=== PATIENT | female | born 1995 | race Native Hawaiian/Other Pacific Islander ===

== ENCOUNTER 2016-02-24 01:07 | Emergency (ER) | payer OTHER ==
[~2016-02-24] VITALS: Ht 152.4 cm; Wt 98.9 kg
[~2016-02-24 01:07] MED LIST: PRENATAL1 T10 PO
[2016-02-24 01:10] VITALS: TEMP 98.5
[2016-02-24 02:33] VITALS: BP 131/76
== END 2016-02-24 02:43 | disposition short-term general hospital (02) ==
LOC: ED 01:07
DX: R10.84 Generalized abdominal pain (principal); O26.92 Pregnancy related conditions, unspecified, second trimester; Z3A.27 27 weeks gestation of pregnancy
CPT/HCPCS: 81000; 99284

== ENCOUNTER 2016-05-16 13:11 | Emergency (ER) | payer OTHER ==
[~2016-05-16] VITALS: Ht 152.4 cm; Wt 104.3 kg
[2016-05-16 13:17] VITALS: BP 135/84; TEMP 99.2
[2016-05-16 13:45] LABS: PLATELET COUNT 250 K/uL (152-353)
[2016-05-16 13:49] LABS: POTASSIUM 3.9 mmol/L (3.6-5.2); SODIUM 136 mmol/L (136-145)
== END 2016-05-16 14:05 | disposition home or self-care (01) ==
LOC: ED 13:11
DX: R42 Dizziness and giddiness (principal)
CPT/HCPCS: 36415; 80053; 85027; 99283

== ENCOUNTER 2016-05-25 21:36 | Emergency (ER) | payer OTHER ==
[~2016-05-25] VITALS: Ht 152.4 cm; Wt 99.3 kg
[2016-05-25 22:31] LABS: PLATELET COUNT 235 K/uL (152-353)
[2016-05-25 22:38] LABS: POTASSIUM 3.3 mmol/L (3.6-5.2); SODIUM 138 mmol/L (136-145)
[2016-05-25 23:09] VITALS: BP 123/77; TEMP 99
== END 2016-05-25 23:15 | disposition home or self-care (01) ==
LOC: ED 21:36
DX: A08.39 Other viral enteritis (principal); R11.10 Vomiting, unspecified
CPT/HCPCS: 36415; 80053; 85027; 99282

== ENCOUNTER 2016-05-26 11:00 | Outpatient (CLI) | payer OTHER | END 2016-05-26 11:16 | disposition home or self-care (01) | LOC: AMB 11:00 | DX: O72.2 Delayed and secondary postpartum hemorrhage (principal) | CPT/HCPCS: A0425; A0427 ==

== ENCOUNTER 2016-05-27 22:39 | Emergency (ER) | payer OTHER ==
[~2016-05-27] VITALS: Ht 152.4 cm; Wt 98.4 kg
[2016-05-27 23:16] LABS: PLATELET COUNT 328 K/uL (152-353)
[2016-05-27 23:28] LABS: POTASSIUM 3.5 mmol/L (3.6-5.2); SODIUM 139 mmol/L (136-145)
[2016-05-27 23:37] LABS: PARTIAL THROMBOPLASTIN TIME 24.5 SECONDS (24.5-33.6)
[2016-05-28 09:43] VITALS: BP 134/68; TEMP 98.5
== END 2016-05-28 09:43 | disposition home or self-care (01) ==
LOC: ED 22:39
PROC: 30233N1 Transfusion of Nonautologous Red Blood Cells into Peripheral Vein, Percutaneous Approach (ICD-10-PCS; principal; 2016-05-28)
PROC: 8E0UXY7 Examination of Female Reproductive System (ICD-10-PCS; 2016-05-28)
DX: R10.84 Generalized abdominal pain (principal); O72.1 Other immediate postpartum hemorrhage; Z37.9 Outcome of delivery, unspecified
CPT/HCPCS: 36415; 80053; 83735; 85014; 85018; 85027; 85379; 85610; 85730; 86850; 86900; 86901; 86922; 96365; 96366; 99284; J2060; J2405; P9016

== ENCOUNTER 2016-08-12 15:57 | Outpatient (CLI) | payer OTHER | END 2016-08-12 17:00 | disposition home or self-care (01) | LOC: LABW 15:57 | DX: N39.0 Urinary tract infection, site not specified (principal) | CPT/HCPCS: 87077; 87086; 87088; 87186 ==